=== PATIENT | male | born 1940 | race Caucasian/White ===

== ENCOUNTER 2024-01-14 17:24 | Emergency (ER) | payer BC, MEDICARE ==
[~2024-01-14 17:24] MED LIST: Iopamidol 370 76% 100 ML VIAL ONE
[2024-01-14 19:06] LABS: Band 35 % (5-11); Hematocrit 34.2 % (38.8-50.0); Hemoglobin 11.4 g/dL (13.5-17.5); Lymphocytes 5 % (21-51); Mean Corpuscular HGB CONC 33.3 g/dL (32.0-36.0); Mean Corpuscular Hemoglobin 29.2 pg (27.0-33.0); Mean Corpuscular Volume 87.7 fL (81.2-95.1); Mean Platelet Volume 9.4 fL (7.4-10.4); Metamyelocyte 3 % (0-0); Monocytes 3 % (0-10); Platelet Count 534 10x3/uL (150-450); RBC Distribution Width 14.5 % (11.5-14.5); White Blood Cell (WBC) Count 14.9 10x3/uL (3.5-10.5)
[2024-01-14 19:07] LABS: Troponin I 0.011 ng/mL (< 0.028)
[2024-01-14 19:09] LABS: Neutrophil 54 % (42-75)
[2024-01-14 19:10] LABS: RBC Morph Comment Within Normal Limits; Toxic Granulation SLIGHT; Vacuoles SLIGHT
[2024-01-14 19:13] LABS: Large Platelets SLIGHT (None Seen); Platelet Adequacy Comment Appears Increased
[2024-01-14 19:14] LABS: MDiff Complete? YES
[2024-01-14 19:17] LABS: ALT (SGPT) 20 U/L (8-55); AST (SGOT) 24 U/L (5-34); Albumin 3.2 g/dL (3.4-4.8); Alkaline Phosphatase 66 U/L (40-110); Anion Gap 21 mmol/L (10-20); BUN (Urea Nitrogen) 30 mg/dL (8.4-25.7); Bilirubin, Total 0.7 mg/dL (0.2-1.2); Calc. Creatinine Clearance 0 mL/min (70-130); Calcium 11.4 mg/dL (7.8-10.44); Carbon Dioxide 17 mmol/L (23-31); Chloride 105 mmol/L (98-107); Estimated GFR 18; Globulin 2.4 g/dL (2.4-3.5); Glucose 119 mg/dL (83-110); Potassium 3.9 mmol/L (3.5-5.1); Protein, Total 5.6 g/dL (5.8-8.1); Sodium 139 mmol/L (136-145)
[2024-01-14 19:33] LABS: INR-International Normal Ratio 1.3; PTT 24.6 sec (22.0-33.0); Prothrombin Time 13.5 sec (9.5-12.1)
[2024-01-14] MEDS ORDERED: Pantoprazole 40 MG VIAL ONE (20:44)
[2024-01-14] MEDS ORDERED: Piperacillin/Tazobactam 4.5 GM VIAL ONE (20:44)
[2024-01-14] MEDS ORDERED: Morphine 2 MG/ML VIAL ONE (20:58)
[2024-01-14] MEDS ORDERED: VANCOMYCIN 2 GRAM/400 ML BAG 2 GM in Premix 1 BAG IVPB SCH (21:15)
[2024-01-14 21:23] LABS: Critical Call Chem-Lactate ERS.JAH AT 2123
[2024-01-15] MEDS ORDERED: Ondansetron HCl/PF 4 MG/2 ML Vial IVP PRN (00:08)
== END 2024-01-14 21:41 | disposition short-term general hospital (02) ==
LOC: CSHERS 17:24
DX: K63.1 Perforation of intestine (nontraumatic) (principal); R79.89 Other specified abnormal findings of blood chemistry; R00.0 Tachycardia, unspecified
CPT/HCPCS: 71045; 71275; 74177; 80053; 83605; 83880; 84484; 85025; 85379; 85610; 85730; 86850; 86900; 86901; 87040; 87077; 87149 ×2; 93005; J2272; J2470; J2543; J3370; Q9967; 36415